=== PATIENT | female | born 1980 | race Caucasian/White ===

== ENCOUNTER 2016-06-28 16:05 | Emergency (ER) | payer OTHER ==
[~2016-06-28] VITALS: Ht 154.9 cm; Wt 90.0 kg
[~2016-06-28 16:05] MED LIST: CELEXA40 MG PO; LORAZEPAM0.5 MG PO; NORCO 5/3251 TABLET PO; PANTOPRAZOLE SO40 MG PO; WELLBUTRIN XL300 MG PO; ZOFRAN4 MG PO
[2016-06-28 16:39] LABS: HEMATOCRIT 39.2 % (36.0-46.0); MCHC 33.2 G/DL (30.0-36.0); MCV 87.5 FL (83-99); MEAN PLAT.VOLUME 9.9 uM^3 (9.5-12.4); PLATELET COUNT 223 K/uL (156-360); RBC DIS.WIDTH-CV 13.3 % (11.8-14.6); RBC DIS.WIDTH-SD 41.2 % (39-53); RED BLOOD COUNT 4.48 M/uL (3.80-5.20); WHITE BLOOD COUNT 9.5 K/uL (4.1-10.2)
[2016-06-28 16:55] LABS: CHLORIDE 107 mEq/L (99-109); POTASSIUM 3.8 mEq/L (3.7-5.4); SODIUM 142 mEq/L (136-147)
[2016-06-28 16:57] LABS: GLUCOSE 86 mg/dL (70-99)
[2016-06-28 16:59] LABS: ANION GAP 13 MEQ/L (2-14); TOTAL BILIRUBIN 0.3 mg/dL (0.0-1.0)
[2016-06-28 17:01] LABS: ALKALINE PHOSPHATASE 65 IU/L (3-129); GFR ESTIMATE (CALCULATED) > 59 mL/min/
[2016-06-28 17:02] LABS: UREA NITROGEN (BUN) 17 mg/dL (9-23)
[2016-06-28 17:11] LABS: QUANTITATIVE HCG < 4.0 MIU/ML
[2016-06-28] MEDS ORDERED: DULOXETINE HCL60 MG PO (18:29)
[2016-06-28] MEDS ORDERED: CLONAZEPAM0.5 MG PO (18:29)
[2016-06-28] MEDS ORDERED: PROBIOTIC1 EAC1 PO (18:30)
[2016-06-28 18:40] LABS: ADD MIUA? NO; BILIRUBIN NEGATIVE; BLOOD NEGATIVE; COLOR YELLOW ((YELLOW)); GLUCOSE (STRIP) NEGATIVE; KETONES NEGATIVE; LEUKOCYTES NEGATIVE; NITRITE NEGATIVE; PROTEIN (STRIP) NEGATIVE; SPECIFIC GRAVITY 1.021 (1.000-1.030); UCUL ADDED? NO; UROBILINOGEN 0.2 MG/DL (0.2-1.0)
[2016-06-28] MEDS ORDERED: ZANTAC300 MG PO (19:10)
[2016-06-28] MEDS ORDERED: ZOFRAN4 MG PO (19:10)
[2016-06-28 19:43] VITALS: BP 139/82
== END 2016-06-28 19:47 | disposition home or self-care (01) ==
LOC: EME 16:05
DX: K92.1 Melena (principal); F17.200 Nicotine dependence, unspecified, uncomplicated
CPT/HCPCS: 80053; 81003; 84702; 85027; 99281; 99284

== ENCOUNTER 2016-08-17 23:16 | Inpatient (IN) | payer OTHER ==
[~2016-08-17] VITALS: Ht 152.4 cm; Wt 91.5 kg
[~2016-08-17 23:16] MED LIST changes: +CLONAZEPAM0.5 MG PO; +DULOXETINE HCL60 MG PO; +PROBIOTIC1 EAC1 PO; +ZANTAC300 MG PO
[2016-08-18 00:03] LABS: HEMATOCRIT 43.9 % (36.0-46.0); MCH 28.4 PG (29.0-34.0); MCHC 32.3 G/DL (30.0-36.0); MCV 87.8 FL (83-99); MEAN PLAT.VOLUME 10.1 uM^3 (9.5-12.4); PLATELET COUNT 217 K/uL (156-360); RBC DIS.WIDTH-CV 13.2 % (11.8-14.6); RBC DIS.WIDTH-SD 42.5 % (39-53); WHITE BLOOD COUNT 10.8 K/uL (4.1-10.2)
[2016-08-18 00:20] LABS: CHLORIDE 110 mEq/L (99-109); POTASSIUM 4.3 mEq/L (3.7-5.4); SODIUM 142 mEq/L (136-147)
[2016-08-18 00:22] LABS: GLUCOSE 114 mg/dL (70-99)
[2016-08-18 00:23] LABS: ANION GAP 12 MEQ/L (2-14)
[2016-08-18 00:24] LABS: TOTAL BILIRUBIN 0.1 mg/dL (0.0-1.0)
[2016-08-18 00:25] LABS: SERUM ETHYL ALCOHOL 122 mg/dL
[2016-08-18 00:26] LABS: ALKALINE PHOSPHATASE 77 IU/L (3-129); GFR ESTIMATE (CALCULATED) > 59 mL/min/
[2016-08-18 00:28] LABS: UREA NITROGEN (BUN) 11 mg/dL (9-23)
[2016-08-18 00:29] LABS: SALICYLATE < 5.0 MG/DL (15-30)
[2016-08-18 00:35] LABS: QUANTITATIVE HCG < 4.0 MIU/ML
[2016-08-18 04:02] VITALS: BP 142/84
[2016-08-18] MEDS ORDERED: CYMBALTA30 MG PO (04:03)
[2016-08-18] MEDS ORDERED: LAMICTAL100 MG PO (04:04)
[2016-08-18] MEDS ORDERED: WELLBUTRIN XL300 MG PO (04:05)
[2016-08-18] MEDS ORDERED: NEXIUM40 MG PO (04:06)
[2016-08-18] MEDS ORDERED: KLONOPIN0.5 M1 PO ×2 (04:07→04:11)
[2016-08-18 07:59] VITALS: BP 143/66
[2016-08-18 12:53] LABS: MAGNESIUM 2.8 mg/dL (1.3-2.7)
[2016-08-18 15:15] VITALS: BP 116/70
[2016-08-19 08:05] VITALS: BP 126/66
== END 2016-08-19 10:52 | disposition home or self-care (01) | DRG 885 ==
LOC: EME 23:16 → EDOF 08-18 00:57 → 1WEST 08-18 00:57
PROVIDERS: Emergency Medicine
DX: F33.9 Major depressive disorder, recurrent, unspecified (principal); F41.1 Generalized anxiety disorder; F10.129 Alcohol abuse with intoxication, unspecified; Y90.6 Blood alcohol level of 120-199 mg/100 ml; T39.1X1A Poisoning by 4-Aminophenol derivatives, accidental (unintentional), initial encounter; T42.4X1A Poisoning by benzodiazepines, accidental (unintentional), initial encounter; E66.01 Morbid (severe) obesity due to excess calories; Z68.39 Body mass index [BMI] 39.0-39.9, adult
CPT/HCPCS: 80053; 81003; 83735; 84702; 85027; 90837; 97165 GO; 99281; 99285; G0480; J1630; J2060; J7030